=== PATIENT | female | born 1955 | race Caucasian/White ===

== ENCOUNTER 2018-11-16 20:11 | Emergency (ER) | payer BC ==
[~2018-11-16] VITALS: Ht 170.2 cm; Wt 59.0 kg
--- NOTE | 2018-11-16 21:02 | NUR ---
PATIENT WAS MSE BY DR JOYNER IN ROOM 04A. PATIENT A & O X3.
[2018-11-16] MEDS ORDERED: IV NORMAL SALINE 1000 ML BAG IV ONE (21:15)
[2018-11-16] MEDS ORDERED: METOCLOPRAMIDE HCL 10 MG/2 ML VIAL IV ONE (21:15)
[2018-11-16] MEDS ORDERED: diphenhydrAMINE 50 MG/1 ML VIAL IV ONE (21:15)
[2018-11-16] MEDS ORDERED: diphenhydrAMINE 50 MG/1 ML VIAL ONE (21:16)
[2018-11-16] MEDS ORDERED: METOCLOPRAMIDE HCL 10 MG/2 ML VIAL ONE (21:16)
--- NOTE | 2018-11-16 22:15 | NUR ---
Patient is resting comfortably in bed with eyes closed
--- NOTE | 2018-11-16 22:40 | NUR ---
Patient discharged to home in stable conditon. Written and verbal after care instructions given. Patient and caregiver verbalizes understanding of instructions.
[2018-11-16 22:41] VITALS: BP 143/88
== END 2018-11-16 22:44 | disposition home or self-care (01) ==
LOC: ER 20:17
DX: G43.A0 Cyclical vomiting, in migraine, not intractable (principal); J45.909 Unspecified asthma, uncomplicated
CPT/HCPCS: 96361; 96374; 96375; 99283; J1200; J2765; A4663; J7030